=== PATIENT | female | born 1995 | race Caucasian/White ===

== ENCOUNTER 2024-05-05 16:33 | Emergency (ER) | payer MEDICAID ==
[~2024-05-05] VITALS: Ht 180.3 cm; Wt 72.6 kg
[2024-05-05 16:59] VITALS: TEMP 97.8
[2024-05-05] MEDS ORDERED: diphenhydrAMINE HCL 50 MG/ML VIAL ONE (17:16)
[2024-05-05] MEDS ORDERED: METOCLOPRAMIDE HCL 10 MG/2 ML VIAL ONE (17:16)
[2024-05-05] MEDS ORDERED: ACETAMINOPHEN ES 500 MG TABLET ONE (17:16)
[2024-05-05] MEDS: diphenhydrAMINE HCL 50 MG/ML VIAL IV ONE (17:24)
[2024-05-05] MEDS: METOCLOPRAMIDE HCL 10 MG/2 ML VIAL IV ONE (17:34)
[2024-05-05] MEDS: ACETAMINOPHEN 325 MG TABLET PO ONE (17:35)
[2024-05-05 17:43] LABS: BASOPHILS # (AUTO) 0.1 K/uL (0.0-0.2); EOSINOPHILS # (AUTO) 0.5 K/uL (0.0-0.7); EOSINOPHILS % (AUTO) 4.5 % (0.0-6.0); MONOCYTES # (AUTO) 0.6 K/uL (0.1-1.30)
[2024-05-05 17:48] LABS: BASOPHILS % (AUTO) 0.6 % (0.0-2.0); HEMATOCRIT 39 % (33-45); HEMOGLOBIN 12.8 g/dL (11.5-14.8); LYMPHOCYTES # (AUTO) 2.5 K/uL (0.8-4.8); LYMPHOCYTES % (AUTO) 21.4 % (20.0-44.0); MEAN CORPUSCULAR HEMOGLOBIN 26 PG (26.0-33.0); MEAN CORPUSCULAR HGB CONC 33 g/dl (31.0-36.0); MEAN CORPUSCULAR VOLUME 79 fL (82-100); MONOCYTES % (AUTO) 5.4 % (2.0-12.0); NEUTROPHILS # (AUTO) 7.9 K/uL (1.8-8.9); NEUTROPHILS % (AUTO) 68.1 % (43.0-81.0); PLATELET COUNT (AUTO) 214 K/uL (150-450); RED BLOOD CELL COUNT(AUTO) 4.96 MIL/uL (4.0-5.2); RED CELL DISTRIBUTION WIDTH 16.6 % (11.5-15.0); WHITE BLOOD COUNT (AUTO) 11.5 K/uL (4.3-11.0)
[2024-05-05 18:27] LABS: ALBUMIN 4.1 g/dL (3.4-5.0); BILIRUBIN,DIRECT 0.1 mg/dL (0.0-0.2); BILIRUBIN,TOTAL 0.4 mg/dL (0.2-1.0); CALCIUM, SERUM 9.2 mg/dL (8.5-10.1); CREATININE 0.8 mg/dL (0.6-1.3); POTASSIUM 3.5 mmol/L (3.5-5.1); TOTAL PROTEIN, SERUM 7.4 g/dL (6.4-8.2)
[2024-05-05] MEDS ORDERED: hydrALAZINE HCL IV 20 MG VIAL ONE (19:57)
[2024-05-05] MEDS: hydrALAZINE HCL IV 20 MG VIAL IV ONE (20:01)
[2024-05-05 20:33] VITALS: BP 152/98; O2SAT 100
== END 2024-05-05 20:50 | disposition home or self-care (01) ==
LOC: ER 16:57
DX: R03.0 Elevated blood-pressure reading, without diagnosis of hypertension (principal); R51.9 Headache, unspecified
CPT/HCPCS: 99285; 96374; 76805; 96375; 85025; 80048; 80076; 36415; 84702; J1200; J0360; J2765; J7030